=== PATIENT | female | born 1970 | race Caucasian/White ===

== ENCOUNTER → 2017-01-07 | Outpatient (CLI) | payer BC ==
[~2017-01-07] MED LIST: IRON325 M1 PO; PRILOSEC OTC20 MG PO
== END | disposition home or self-care (01) ==
LOC: CDC 12:03
DX: I49.9 Cardiac arrhythmia, unspecified (principal); R94.31 Abnormal electrocardiogram [ECG] [EKG]
CPT/HCPCS: 93000

== ENCOUNTER 2017-01-28 06:45 | Day surgery (SDC) | payer BC ==
[~2017-01-28] VITALS: Ht 167.6 cm; Wt 106.6 kg
[~2017-01-28 06:45] MED LIST changes: +B COMPLEX #11 EACH PO
[2017-01-28 07:45] VITALS: BP 129/77
[2017-01-28 10:35] VITALS: BP 160/75
[2017-01-28 11:43] VITALS: BP 155/62
== END 2017-01-28 12:07 | disposition home or self-care (01) ==
LOC: SDC 06:45
PROC: 0UDB8ZX Extraction of Endometrium, Via Natural or Artificial Opening Endoscopic, Diagnostic (ICD-10-PCS; principal; 2017-01-28)
PROC: 0UB98ZX Excision of Uterus, Via Natural or Artificial Opening Endoscopic, Diagnostic (ICD-10-PCS; principal; 2017-01-28)
PROC: 0UBC8ZX Excision of Cervix, Via Natural or Artificial Opening Endoscopic, Diagnostic (ICD-10-PCS; principal; 2017-01-28)
DX: N84.1 Polyp of cervix uteri (principal); N92.0 Excessive and frequent menstruation with regular cycle; R94.31 Abnormal electrocardiogram [ECG] [EKG]; F41.9 Anxiety disorder, unspecified; K21.9 Gastro-esophageal reflux disease without esophagitis; Z82.49 Family history of ischemic heart disease and other diseases of the circulatory system; Z80.1 Family history of malignant neoplasm of trachea, bronchus and lung; Z81.1 Family history of alcohol abuse and dependence
CPT/HCPCS: 84702; 88305; J1100; J1885; J2250; J2405; J3010

== ENCOUNTER 2017-11-29 07:53 | Emergency (ER) | payer BC ==
[~2017-11-29] VITALS: Ht 167.6 cm; Wt 107.7 kg
[2017-11-29 08:48] LABS: HEMATOCRIT 38.9 % (36.0-46.0); HEMOGLOBIN 12.5 G/DL (11.9-15.5); MCHC 32.1 G/DL (30.0-36.0); PLATELET COUNT 347 K/uL (156-360); RBC DIS.WIDTH-SD 43.8 % (39-53); RED BLOOD COUNT 4.47 M/uL (3.80-5.20); WHITE BLOOD COUNT 8.2 K/uL (4.1-10.2)
[2017-11-29 08:50] LABS: APPEARANCE CLEAR ((CLEAR)); BILIRUBIN NEGATIVE; BLOOD NEGATIVE; COLOR YELLOW ((YELLOW)); GLUCOSE (STRIP) NEGATIVE; KETONES NEGATIVE; LEUKOCYTES NEGATIVE; NITRITE NEGATIVE; PROTEIN (STRIP) NEGATIVE; SPECIFIC GRAVITY 1.011 (1.000-1.030); UCUL ADDED? NO; UROBILINOGEN 0.2 MG/DL (0.2-1.0)
[2017-11-29 09:09] LABS: QUANTITATIVE HCG < 4.0 MIU/ML
[2017-11-29 09:38] LABS: ALBUMIN 4.1 g/dL (3.2-4.8)
[2017-11-29 09:39] LABS: CHLORIDE 109 mEq/L (99-109); POTASSIUM 3.8 mEq/L (3.7-5.4); SODIUM 140 mEq/L (136-147)
[2017-11-29 09:41] LABS: GLUCOSE 92 mg/dL (70-99); TOTAL PROTEIN 7.1 g/dL (6.4-8.3)
[2017-11-29 09:43] LABS: TOTAL BILIRUBIN 0.2 mg/dL (0.0-1.0)
[2017-11-29 09:44] LABS: ALKALINE PHOSPHATASE 118 IU/L (3-129)
[2017-11-29 09:45] LABS: CREATININE 0.7 mg/dL (0.6-1.3); GFR ESTIMATE (CALCULATED) > 59 mL/min/
[2017-11-29 09:46] LABS: AST (GOT) 16 IU/L (2-34); UREA NITROGEN (BUN) 7 mg/dL (9-23)
[2017-11-29 09:47] LABS: ALT (GPT) 14 IU/L (3-49)
[2017-11-29 09:48] LABS: LIPASE 14 U/L (1.0-51.0)
[2017-11-29] MEDS ORDERED: ULTRAM50 MG PO (10:47)
[2017-11-29] MEDS ORDERED: ZOFRAN4 MG PO (10:47)
[2017-11-29] MEDS ORDERED: FLOMAX0.4 MG PO (10:47)
[2017-11-29 11:11] VITALS: BP 141/80
== END 2017-11-29 11:12 | disposition home or self-care (01) ==
LOC: EME 07:53
PROVIDERS: Physician Assistant
DX: N13.2 Hydronephrosis with renal and ureteral calculous obstruction (principal); K21.9 Gastro-esophageal reflux disease without esophagitis; Z87.440 Personal history of urinary (tract) infections; Z98.51 Tubal ligation status
CPT/HCPCS: 74177; 80053; 81003; 83690; 84702; 85027; 99281; 99284; J1885; J2405; J7030

== ENCOUNTER 2018-01-13 05:29 | Day surgery (SDC) | payer BC ==
[~2018-01-13] VITALS: Ht 167.6 cm; Wt 104.3 kg
[~2018-01-13 05:29] MED LIST changes: +FLOMAX0.4 MG PO; +ULTRAM50 MG PO; +ZOFRAN4 MG PO
[2018-01-13 05:51] VITALS: BP 175/79
[2018-01-13 09:10] VITALS: BP 146/77
[2018-01-13 09:55] VITALS: BP 127/73
== END 2018-01-13 10:07 | disposition home or self-care (01) ==
LOC: SDC 05:29
DX: N35.9 Urethral stricture, unspecified (principal); N13.30 Unspecified hydronephrosis; K21.9 Gastro-esophageal reflux disease without esophagitis; F41.9 Anxiety disorder, unspecified; Z87.442 Personal history of urinary calculi; Z88.0 Allergy status to penicillin; Z88.2 Allergy status to sulfonamides
CPT/HCPCS: 74420; C1758; C1769; J0131; J0330; J0690; J1100; J2250; J2405; J3010; Q0175